=== PATIENT | female | born 1955 | race Hispanic/Latino ===

== ENCOUNTER → 2017-08-15 | Day surgery (SDC) | payer BC ==
[2017-08-14 10:11] LABS: ANION GAP 12.7 mmol/L (8-16); BLOOD UREA NITROGEN 17 mg/dL (7-26); BUN/CREATININE RATIO 21 (6-25); CARBON DIOXIDE 27 mmol/L (22-29); CHLORIDE 103 mmol/L (98-107); EST GLOMERULAR FILTRATION RATE > 60 ML/MIN (60-); GLUCOSE 211 mg/dL (74-118); POTASSIUM 4.7 mmol/L (3.5-5.1); SODIUM 138 mmol/L (136-145)
[~2017-08-15] MED LIST: BUPIVACAINE 0.5%/EPI 30 ML SDV INJ ONE; CEFAZOLIN SOD 1 GM VIAL ONE; DEXAMETHASONE SOD PHOS INJ 4 MG/ML VIAL ONE; EXEMESTANE25 MG PO; FENTANYL CITRATE/PF 100MCG/2 ML INJ ONE; GLIMEPIRIDE2 MG PO; HYDROCHLOROTHIA25 MG PO; LEVOTHYROXINE50 MCG PO; LIDOCAINE HCL 2% LOCAL INJ 5 ML SDV VIAL INJ ONE; LISINOPRIL10 MG PO; METFORMIN HCL500 M2 PO; MIDAZOLAM HCL 2 MG/2 ML VIAL ONE; OMEPRAZOLE40 MG PO; ONDANSETRON HCL INJ 2 MG/ML VIAL ONE; PROPOFOL IV EMULSION 10 MG/ML 20 ML VIAL ONE; SEVOFLURANE INHAL SOLN 250 ML PEN BTL ONE; TRAZODONE HCL50 MG PO
--- OUTSIDE RECORDS SUMMARY | 2017-08-15 06:36 | XMS REPORT | Clinical Summary ---
Author Author [facility] Address Unknown Phone Unavailable Care Team Providers Care Ict Support Technicians Name Role Phone PCP Unavailable Allergies No Known Allergies Current Medications Prescription Sig. Disp. Refills Start End Date Status Date fenofibrate (TRIGLIDE) Take 160 mg by mouth Active 160 MG tablet daily. glimepiride (AMARYL) 2 MG Take 3.5 mg by mouth Active tablet every morning before breakfast. levothyroxine (SYNTHROID, Take 88 mcg by mouth Active LEVOTHROID) 88 MCG tablet daily. lisinopril 10 MG Tab 10 Take by mouth 2 (two) Active mg, hydrochlorothiazide times daily. 12.5 mg Cap 12.5 mg meclizine (ANTIVERT) 12.5 Take 12.5 mg by mouth as Active mg tablet needed. metFORMIN (GLUCOPHAGE) Take 1,000 mg by mouth Active 500 MG tablet daily. omeprazole (PRILOSEC) 20 Take 20 mg by mouth Active MG capsule daily. traMADol (ULTRAM) 50 mg Take 50 mg by mouth 2 Active tablet (two) times daily. Active Problems Problem Noted Date Breast mass 02/18/2013 Social History Tobacco Use Types Packs/Day Years Used Date Never Smoker Smokeless Tobacco: Never Used Alcohol Use Drinks/Week oz/Week Comments No Sex Assigned at Date Recorded Not on file Last Filed Vital Signs Not on file Plan of Treatment Not on file Results Not on fileafter 08/14/2016
--- OUTSIDE RECORDS SUMMARY | 2017-08-15 06:36 | XMS REPORT ---
Author Author [facility] Address Unknown Phone Unavailable Care Team Providers Care Cell Support Operator Name Role Phone NAVIN VALLADARES Unavailable Unavailable Problems This patient has no known problems. Allergies, Adverse Reactions, Alerts This patient has no known allergies or adverse reactions. Medications This patient has no known medications. Results Test Description Test Time Test Comments Text Results Atomic Results Result Comments CHEST SINGLE (PORTABLE) [place] [address] Patient Name: JADE FORRESTER MR #: [id number] : 1955 Age/Sex: 61/F Req #: [id number] Adm Physician: Ordered by: NAVIN VALLADARES MD Report #: [id number] Location: ER Room/Bed: Procedure: [id number] DX/CHEST SINGLE (PORTABLE) Exam Date: 12/19/16 Exam Time: 1240 REPORT STATUS: Signed PROCEDURE: A single AP view of the chest. COMPARISON: None. INDICATIONS: DVT, CARDIAC WORKUP FINDINGS: Lines/tubes: None. Lungs: The lungs are well inflated. Mild central pulmonary venous congestion. Pleura: There is no pleural effusion or pneumothorax. Heart and mediastinum: The heart and the mediastinum are unremarkable. Bones: No acute bony abnormality. IMPRESSION: Mild central pulmonary venous congestion. Otherwise unremarkable chest. Dictated by: Per Beach M.D. on at 13:00 Electronically approved by: Per Beach M.D. on 2016 at 13:00 Dictated By: PER BEACH MD 1300 Transcribed By: CED on 12/19/16 1300 COPY TO: NAVIN VALLADARES MD
--- OUTSIDE RECORDS SUMMARY | 2017-08-15 06:36 | XMS REPORT | Clinical Summary ---
Author Author [facility] Address Unknown Phone Unavailable Care Team Providers Care Supervisor Fur Floor Worker Name Role Phone PCP Unavailable Allergies Not on File Current Medications Not on file Active Problems Not on file Encounters Date Type Specialty Care Team Description 09/19/2016 Lab Lab Francisca Antonio MD after 08/14/2016 Social History Tobacco Use Types Packs/Day Years Used Date Never Assessed Sex Assigned at Date Recorded Not on file Last Filed Vital Signs Not on file Plan of Treatment Health Maintenance Due Date Last Done Comments PAP SMEAR 1975 COLONOSCOPY 01/28/2004 MAMMOGRAM 01/28/2004 SHINGRIX VACCINE (#1) 01/28/2004 ZOSTER VACCINE 2014 INFLUENZA VACCINE 10/31/2017 Results * Surgical pathology request (09/19/2016 6:05 PM) Component Value Ref Range Surgical pathology report See link below for PDF Lab Report Specimen Performing Laboratory [facility] DEPARTMENT OF PATHOLOGY AND GENOMIC MEDICINE [address] [place] [id number] after 08/14/2016 Insurance Payer Benefit Subscriber ID Type Phone Address Plan / Group BCBS BCBS xxxxxxxxxxxx PPO CHOICE PPO/TERRA L [id number] PPO
--- NOTE | 2017-08-16 13:09 | Operative Report ---
DATE OF PROCEDURE: August 15, 2017 PREOPERATIVE DIAGNOSES 1. Left knee medial meniscus tear. 2. Left knee degenerative joint disease of the knee. POSTOPERATIVE DIAGNOSES 1. Left knee medial meniscus tear. 2. Left knee degenerative joint disease of the knee. PROCEDURES PERFORMED 1. Left knee examination under anesthesia. 2. Left knee arthroscopy. 3. Left knee partial medial meniscectomy. 4. Left knee chondroplasties of patella, trochlea, medial femoral condyle, medial tibial plateau, lateral femoral condyle and lateral tibial plateau. FISHER SCALLOP: None. ANESTHESIA: General endotracheal intubation anesthesia. IV FLUIDS: Per the anesthesia record. DESCRIPTION OF PROCEDURE: Ms. Hardin was taken to the operating room and placed in the supine position on the operating room table. Following induction of general anesthesia as well as endotracheal intubation, the patient's left lower extremity was examined under anesthesia. She was found to have a mild effusion within the knee joint but an otherwise ligamentously stable knee. The patient's lower extremity was prepped and draped in standard surgical fashion. A 2-portal technique was used to provide this patient arthroscopic evaluation of the knee joint. Examination of the suprapatellar pouch and medial and lateral gutters found no evidence of loose bodies. There was, however, evidence of chondromalacia of the patellar and trochlear surfaces. Scope was advanced to the medial compartment, and examination of the medial compartment demonstrated a torn medial meniscus. The tear was in the posterior horn and root of the meniscus. There was chondromalacia of the articulating surfaces. A combination of biting forceps and motorized shaver was used to resect the torn portion of the meniscus. Chondroplasties of the medial femoral condyle and medial tibial plateau were performed at this time. The scope was then advanced to the intercondylar notch. Anterior cruciate ligament was identified and found to be intact. There was also chondromalacia of the articulating surfaces. A shaver was used to provide chondroplasties of the lateral femoral condyle and lateral tibial plateau. Scope was then advanced into the suprapatellar pouch, and chondroplasties of the patella and the trochlea were performed. The knee was then deflated of its sterile normal saline. Each of the portal sites were closed using 4-0 nylon suture. Portal sites as well as the knee itself were injected with 1/2 percent Marcaine with epinephrine. Sterile dressings were applied. The patient was awakened and taken to postanesthesia care unit in stable condition. Job#: [id number]
== END | disposition home or self-care (01) ==
LOC: OR 06:34
PROVIDERS: ATTEND Specialist
DX: S83.282A Other tear of lateral meniscus, current injury, left knee, initial encounter (principal); M17.12 Unilateral primary osteoarthritis, left knee; M22.42 Chondromalacia patellae, left knee; M94.262 Chondromalacia, left knee; S76.312A Strain of muscle, fascia and tendon of the posterior muscle group at thigh level, left thigh, initial encounter; X58.XXXA Exposure to other specified factors, initial encounter; E11.9 Type 2 diabetes mellitus without complications; Z79.84 Long term (current) use of oral hypoglycemic drugs; I10 Essential (primary) hypertension; M19.90 Unspecified osteoarthritis, unspecified site; Z01.810 Encounter for preprocedural cardiovascular examination; Z01.812 Encounter for preprocedural laboratory examination; Z86.718 Personal history of other venous thrombosis and embolism
CPT/HCPCS: 29881; 36415 ×2; 80048; 82948; 93005; J0690; J1100; J2001; J2250; J2405

== ENCOUNTER 2018-10-29 11:00 | Outpatient (RCR) | payer BC ==
[~2018-10-29 11:00] MED LIST changes: -BUPIVACAINE 0.5%/EPI 30 ML SDV INJ ONE; -CEFAZOLIN SOD 1 GM VIAL ONE; -DEXAMETHASONE SOD PHOS INJ 4 MG/ML VIAL ONE; -FENTANYL CITRATE/PF 100MCG/2 ML INJ ONE; -LIDOCAINE HCL 2% LOCAL INJ 5 ML SDV VIAL INJ ONE; -MIDAZOLAM HCL 2 MG/2 ML VIAL ONE; -ONDANSETRON HCL INJ 2 MG/ML VIAL ONE; -PROPOFOL IV EMULSION 10 MG/ML 20 ML VIAL ONE; -SEVOFLURANE INHAL SOLN 250 ML PEN BTL ONE
== END 2018-10-30 ==
LOC: PT 11:00
PROVIDERS: ATTEND Specialist
DX: S82.002A Unspecified fracture of left patella, initial encounter for closed fracture (principal); M25.562 Pain in left knee; M25.662 Stiffness of left knee, not elsewhere classified; M62.81 Muscle weakness (generalized); R26.2 Difficulty in walking, not elsewhere classified; M54.5 Low back pain

== ENCOUNTER 2018-11-27 13:00 | Outpatient (RCR) | payer BC | END 2018-11-30 | LOC: PT 13:00 | PROVIDERS: ATTEND Specialist | DX: M25.562 Pain in left knee (principal); M25.561 Pain in right knee; M25.662 Stiffness of left knee, not elsewhere classified; M25.661 Stiffness of right knee, not elsewhere classified; M62.81 Muscle weakness (generalized); R26.2 Difficulty in walking, not elsewhere classified; M54.5 Low back pain | CPT/HCPCS: 97010 ×2; 97110 ×12; 97140; G0283 ×2 ==

== ENCOUNTER 2018-12-26 11:00 | Outpatient (RCR) | payer BC | END 2018-12-30 | LOC: PT 11:00 | PROVIDERS: ATTEND Specialist | DX: S82.002A Unspecified fracture of left patella, initial encounter for closed fracture (principal); M62.81 Muscle weakness (generalized); R26.2 Difficulty in walking, not elsewhere classified; M17.12 Unilateral primary osteoarthritis, left knee ==

== ENCOUNTER 2018-12-31 10:01 | Outpatient (RCR) | payer BC | END 2019-01-30 | LOC: PT 10:01 | PROVIDERS: ATTEND Specialist | DX: M17.12 Unilateral primary osteoarthritis, left knee (principal); S82.002A Unspecified fracture of left patella, initial encounter for closed fracture | CPT/HCPCS: 97139 ==